=== PATIENT | male | born 1950 | race Caucasian/White ===

== ENCOUNTER → 2016-10-01 | Outpatient (CLI) | payer MEDICARE, BC ==
[~2016-10-01] MED LIST: ALBUTEROL17 GM INH; CENTRUM SILVER PO; CIPRO PO; COLCRYS0.6 MG PO; COMBIVENT INH14.7 GM INH; DALIRESP500 MCG PO; DETROL LA PO; FERROUS SULFATE PO; FLOMAX0.4 M1 PO; FLOMAX0.4 MG PO; INDOCIN SR75 MG PO; LASIX PO; LEVEMIR SUBQ; LISINOPRIL PO; METFORMIN HCL1000 M1 PO; METFORMIN PO; NAPROXEN PO; NEURONTIN300 MG PO; NOVOLIN N100 U/ML INJ; NOVOLIN R100 U/ML INJ; NOVOLOG100 U/M1; SINGULAIR PO; SYMBICORT 160/4.6 G1; ULTRAM PO; VICODIN PO; VICOPROFEN 200-1 TAB; XOPENEX1.25 MG/0. NEB; ZINC SULFATE PO
--- NOTE | ~2016-10-01 | CR169 ---
[facility] A Service of [facility] & [facility] RADIOLOGY TEXT RESULTS PATIENT: EDEL COX LOCATION: [facility] : 54 UNIT #: [id number] AGE: [address]: Padmini Salcido MD SEX: M ORDER DR: [id number] [facility] [address] [place], [place] [address] [id number] O MR#: [id number] Acc #: [id number] NAME: EDEL COX : 1950 SEX: M STUDY DATE/TIME: 10/01/2016 8:51 UNIT: [facility] ROOM: STUDY DESCRIPTION: CR Knee 2 Views Lt Attending Physician: Padmini Salcido M.D. Referring Physician: Padmini Salcido M.D. Ordering Physician: Padmini Salcido M.D. Primary Care Physician: Padmini Salcido M.D. MEDICAL IMAGING REPORT This report is preliminary unless electronic signature is present EXAM Left knee INDICATIONS Left knee pain. Chronic pain. Two views of the left knee compared to 11/26/2007 FINDINGS The patient has undergone left total knee arthroplasty. Alignment of the arthroplasty is anatomic. There is a moderate left knee effusion. IMPRESSION 1. Moderate left knee effusion. 2. Anatomic alignment of the left total knee arthroplasty. Dictated by... Eduardo Rodriguez M.D. THIS IS AN ELECTRONICALLY VERIFIED REPORT Eduardo Rodriguez M.D. at 10/01/2016 8:09 PM Yuliya TD: 10/01/2016 18:03 JOB #: [id number] MEDICAL IMAGING REPORT Page 1 of 1 COPY
--- NOTE | ~2016-10-01 | CR144 ---
[facility] A Service of [facility] & [facility] RADIOLOGY TEXT RESULTS PATIENT: EDEL COX LOCATION: [facility] : 54 UNIT #: [id number] AGE: [address]: Padmini Salcido MD SEX: M ORDER DR: [id number] [facility] [address] [place], [place] [address] [id number] O MR#: [id number] Acc #: [id number] NAME: EDEL COX : 1950 SEX: M STUDY DATE/TIME: 10/01/2016 8:48 UNIT: [facility] ROOM: STUDY DESCRIPTION: CR Hip 1 View Lt Attending Physician: Padmini Salcido M.D. Referring Physician: Padmini Salcido M.D. Ordering Physician: Padmini Salcido M.D. Primary Care Physician: Padmini Salcido M.D. MEDICAL IMAGING REPORT This report is preliminary unless electronic signature is present EXAM Left hip. INDICATION Left hip pain for 4 to 5 years. Six months of increasing severity. FINDINGS AP radiograph of the left hip without comparison. There is no acute fracture or dislocation. There is moderate superior joint space narrowing. IMPRESSION Moderate arthritis of the left hip. Dictated by... Eduardo Rodriguez M.D. THIS IS AN ELECTRONICALLY VERIFIED REPORT Eduardo Rodriguez M.D. at 10/01/2016 8:08 PM KURT/prasad TD: 10/01/2016 18:11 JOB #: [id number] MEDICAL IMAGING REPORT Page 1 of 1 COPY
--- NOTE | ~2016-10-01 | CR170 ---
[facility] A Service of [facility] & [facility] RADIOLOGY TEXT RESULTS PATIENT: EDEL COX LOCATION: [facility] : 54 UNIT #: [id number] AGE: [address]: Padmini Salcido MD SEX: M ORDER DR: [id number] [facility] [address] [place], [place] [address] [id number] O MR#: [id number] Acc #: [id number] NAME: EDEL COX : 1950 SEX: M STUDY DATE/TIME: 10/01/2016 8:50 UNIT: [facility] ROOM: STUDY DESCRIPTION: CR Knee 2 Views Rt Attending Physician: Padmini Salcido M.D. Referring Physician: Padmini Salcido M.D. Ordering Physician: Padmini Salcido M.D. Primary Care Physician: Padmini Salcido M.D. MEDICAL IMAGING REPORT This report is preliminary unless electronic signature is present PLAN Right knee INDICATIONS Right knee arthritis. Right knee pain for 4-5 years. Increasing severity over 6 months. FINDINGS 2 views of the right knee without comparison. There is no acute fracture or dislocation. There is moderate joint space narrowing with some osteophyte formation along the medial and lateral joint spaces. No knee effusion. IMPRESSION Moderate osteoarthritis of the right knee. Dictated by... Eduardo Rodriguez M.D. THIS IS AN ELECTRONICALLY VERIFIED REPORT Eduardo Rodriguez M.D. at 10/01/2016 8:09 PM C/to TD: 10/01/2016 19:19 JOB #: [id number] MEDICAL IMAGING REPORT Page 1 of 1 COPY
--- NOTE | ~2016-10-01 | CR145 ---
[facility] A Service of [facility] & [facility] RADIOLOGY TEXT RESULTS PATIENT: EDEL COX LOCATION: [facility] : 54 UNIT #: [id number] AGE: [address]: Padmini Salcido MD SEX: M ORDER DR: [id number] [facility] [address] [place], [place] [address] [id number] O MR#: [id number] Acc #: [id number] NAME: EDEL COX : 1950 SEX: M STUDY DATE/TIME: 10/01/2016 8:48 UNIT: [facility] ROOM: STUDY DESCRIPTION: CR Hip 1 View Rt Attending Physician: Padmini Salcido M.D. Referring Physician: Padmini Salcido M.D. Ordering Physician: Padmini Salcido M.D. Primary Care Physician: Padmini Salcido M.D. MEDICAL IMAGING REPORT This report is preliminary unless electronic signature is present EXAM Right hip INDICATIONS Right hip pain for 4-5 years. Increasing severity over 6 months. FINDINGS AP view of the right hip without comparison. There is no acute fracture or dislocation. There is mild superior joint space narrowing. No foreign body. IMPRESSION Mild superior joint space narrowing of the right hip. Dictated by... Eduardo Rodriguez M.D. THIS IS AN ELECTRONICALLY VERIFIED REPORT Eduardo Rodriguez M.D. at 10/01/2016 8:08 PM [facility]/joe TD: 10/01/2016 17:58 JOB #: [id number] MEDICAL IMAGING REPORT Page 1 of 1 COPY
== END | disposition home or self-care (01) ==
LOC: CRAD 08:21
DX: M17.0 Bilateral primary osteoarthritis of knee (principal); M16.12 Unilateral primary osteoarthritis, left hip; M25.851 Other specified joint disorders, right hip; M25.462 Effusion, left knee
CPT/HCPCS: 73501; 73560

== ENCOUNTER 2016-10-13 10:18 | Emergency (ER) | payer MEDICARE, BC ==
[~2016-10-13] VITALS: Ht 177.8 cm; Wt 164.2 kg
[2016-10-13 11:11] LABS: BASOPHIL# 0.1 X10e3 (0-0.3); BASOPHIL% 1.7 % (0-2.5); EOSINOPHIL# 0.8 X10e3 (0-0.7); EOSINOPHIL% 11.3 % (0.0-7.0); HEMATOCRIT 32.4 % (38.0-50.0); HEMOGLOBIN 10.3 gm/dL (13.0-16.0); LYMPHOCYTE# 1.2 X10e3 (1.0-3.5); LYMPHOCYTE% 16.2 % (17.0-45.0); MEAN CELL VOLUME 79.9 FL (83-96); MEAN CORPUSCULAR HEMOGLOBIN 25.4 PG (28-34); MEAN CORPUSCULAR HGB CONC 31.9 g/dL (30-36); MEAN PLATELET VOLUME 9.2 FL (6.5-11.5); MONOCYTE# 0.6 X10e3 (0-1.0); MONOCYTE% 8.2 % (3.0-12.0); NEUTROPHIL# 4.5 X10e3 (1.5-7.1); NEUTROPHIL% 62.6 % (40-75); PLATELET COUNT 162 X10e3 (140-420); RED BLOOD COUNT 4.06 X10e (3.90-5.60); WHITE BLOOD COUNT 7.2 X10e3 (4.0-10.5)
[2016-10-13 11:16] LABS: DIFF IND NO
[2016-10-13 11:23] LABS: INR 1.1; PARTIAL THROMBOPLASTIN TIME 27.8 SECONDS (23.5-31.3); PROTHROMBIN TIME (PATIENT) 11.4 SECONDS (10.0-11.7)
[2016-10-13 11:38] LABS: ALBUMIN SERUM 3.4 g/dL (3.5-5.0); BILIRUBIN, DIRECT 0.2 mg/dL (0.0-0.2); BILIRUBIN,INDIRECT 0.2 mg/dL (0.0-0.9); BILIRUBIN,TOTAL 0.4 mg/dL (0.2-2.0); BUN/CREATININE RATIO 16.42; CALCIUM SERUM 8.9 mg/dL (8.4-10.2); CREATININE SERUM 1.4 mg/dL (0.6-1.4); GLOM FILT RATE Estimated 52.7 mL/min (>60); POTASSIUM 3.9 mmol/L (3.5-5.1); PROTEIN TOTAL SERUM 7.5 g/dL (6.0-8.3)
== END 2016-10-13 13:00 | disposition home or self-care (01) ==
LOC: CED 10:18
PROVIDERS: Emergency Medicine
DX: L02.214 Cutaneous abscess of groin (principal); E11.9 Type 2 diabetes mellitus without complications; J45.909 Unspecified asthma, uncomplicated; Z88.0 Allergy status to penicillin; Z79.899 Other long term (current) drug therapy; Z79.4 Long term (current) use of insulin
CPT/HCPCS: 36415; 80048; 80076; 85025; 85610; 85730; 87040; 87070; 87077; 87186; 87205; 99283